=== PATIENT | male | born 1930 | race Two or more races ===

== ENCOUNTER → 2017-09-10 | Outpatient (REF) | payer OTHER | LOC: M SMT 12:58 | PROVIDERS: ATTEND Nurse Practitioner Family | DX: N41.1 Chronic prostatitis (principal) | CPT/HCPCS: 87086; G0463 ==

== ENCOUNTER 2017-10-29 06:12 | Day surgery (SDC) | payer OTHER ==
[2017-10-29] MEDS ORDERED: LevoFLOXacin IV 500 MG in APPROPRIATE DILUENT 1 EA IV (06:30)
[2017-10-29] MEDS ORDERED: LR 1,000 ML IV ×2 (06:30→10:15)
[2017-10-29] MEDS ORDERED: ROCURONIUM BROMIDE 50 MG/5 ML VIAL As Ordered (07:18)
[2017-10-29] MEDS ORDERED: PROPOFOL 200 MG/20 ML VIAL As Ordered (07:18)
[2017-10-29] MEDS ORDERED: fentaNYL 100 MCG/2 ML INJECTION (J3010) As Ordered (07:19)
[2017-10-29] MEDS ORDERED: dexameTHASONE 4 MG/ML 1ML VIAL (J1100) As Ordered ×2 (07:49)
[2017-10-29] MEDS ORDERED: ePHEDrine SULFATE 25 MG/5 ML(5MG/ML) SYRINGE As Ordered (07:55)
[2017-10-29] MEDS ORDERED: ONDANSETRON 4MG/2ML VIAL (J2405) IV (10:15)
[2017-10-29] MEDS ORDERED: fentaNYL 100 MCG/2 ML INJECTION (J3010) IV (10:15)
[2017-10-29] MEDS ORDERED: ACETAMINOPHEN TAB 650MG DOSE (2X325MG) PO (10:15)
[2017-10-29] MEDS ORDERED: PERCOCET 5MG/325MG TAB PO (10:15)
== END 2017-10-29 12:12 | disposition home or self-care (01) ==
LOC: M SDC 06:12
DX: N40.1 Benign prostatic hyperplasia with lower urinary tract symptoms (principal); N41.9 Inflammatory disease of prostate, unspecified; N13.8 Other obstructive and reflux uropathy; I35.1 Nonrheumatic aortic (valve) insufficiency; F41.9 Anxiety disorder, unspecified; F32.9 Major depressive disorder, single episode, unspecified; K21.9 Gastro-esophageal reflux disease without esophagitis; M19.90 Unspecified osteoarthritis, unspecified site; Z88.0 Allergy status to penicillin; Z88.1 Allergy status to other antibiotic agents; Z79.899 Other long term (current) drug therapy
CPT/HCPCS: 52601

== ENCOUNTER → 2018-04-05 | Outpatient (REF) | payer OTHER ==
[2018-04-05 14:00] LABS: APPEARANCE, URINE CLEAR (CLEAR); BACTERIA, URINE AUTO NEGATIVE (NEGATIVE); BILIRUBIN, URINE AUTO NEGATIVE (NEGATIVE); BLOOD, URINE BLOOD NEGATIVE (NEGATIVE); COLOR, URINE STRAW (YELLOW); GLUCOSE, URINE (UA) AUTO NEGATIVE (NEGATIVE); KETONE, URINE AUTO NEGATIVE (NEGATIVE); LEUKOCYTE ESTERASE, URINE AUTO NEGATIVE (NEGATIVE); MUCUS, URINE SMALL (NEGATIVE); NITRITE, URINE AUTO NEGATIVE (NEGATIVE); PROTEIN, URINE AUTO NEGATIVE (NEGATIVE); RBC, URINE AUTO 0 /HPF (0-3); SPECIFIC GRAVITY URINE AUTO 1.006 (1.002-1.035); SQUAMOUS EPITHELIAL CELL UR AU 0 /HPF (0-6); UROBILINOGEN, URINE AUTO 0.2 mg/dL (0.0-2.0); WBC, URINE AUTO 1 /HPF (0-3)
== END ==
LOC: M SMT 12:52
DX: R30.0 Dysuria (principal)
CPT/HCPCS: 81001

== ENCOUNTER → 2020-07-28 | Outpatient (REF) | payer MEDICARE ==
[~2020-07-28] MED LIST: BACT800T5 PO; FINA5TAB2 PO; PANT40TA29 PO; PRESCAP6 PO; STOO100T PO; VITA-108 PO; VITA100018 PO; VITA500T88 PO; [UNRECOGNIZED DRUG - CODE] PO
[2020-07-28 18:14] LABS: APPEARANCE, URINE CLEAR (CLEAR); BACTERIA, URINE AUTO NEGATIVE (NEGATIVE); BILIRUBIN, URINE AUTO NEGATIVE (NEGATIVE); BLOOD, URINE BLOOD NEGATIVE (NEGATIVE); COLOR, URINE YELLOW (YELLOW); GLUCOSE, URINE (UA) AUTO NEGATIVE (NEGATIVE); KETONE, URINE AUTO NEGATIVE (NEGATIVE); LEUKOCYTE ESTERASE, URINE AUTO NEGATIVE (NEGATIVE); NITRITE, URINE AUTO NEGATIVE (NEGATIVE); PROTEIN, URINE AUTO NEGATIVE (NEGATIVE); RBC, URINE AUTO 0 /HPF (0-3); SPECIFIC GRAVITY URINE AUTO 1.013 (1.002-1.035); SQUAMOUS EPITHELIAL CELL UR AU 0 /HPF (0-6); UROBILINOGEN, URINE AUTO 0.2 mg/dL (0.0-2.0); WBC, URINE AUTO 0 /HPF (0-3)
== END ==
LOC: M SMT 17:19
PROVIDERS: ATTEND Nurse Practitioner Family
DX: N40.1 Benign prostatic hyperplasia with lower urinary tract symptoms (principal)

== ENCOUNTER 2021-07-21 16:20 | Emergency (ER) | payer MEDICARE ==
[~2021-07-21] VITALS: Ht 177.8 cm; Wt 60.6 kg
[2021-07-21] MEDS ORDERED: NS 500 ML IV ONE (19:05)
[2021-07-21] MEDS ORDERED: MORPHINE 2 MG/ML 1ML VIAL (J2270) IV ONE (20:00)
[2021-07-21] MEDS ORDERED: ISOVUE-370 76% 100ML VIAL As Ordered ONE (20:02)
[2021-07-21 20:12] LABS: BASO # 0.1 10^3/uL (0.0-0.2); BASO % 0.6 % (0.0-1.0); EOS # 0.1 10^3/uL (0.0-0.5); EOS % 0.6 % (0.0-3.0); HEMATOCRIT 38.7 % (42.0-52.0); HEMOGLOBIN 13.4 g/dl (13.5-17.5); LYMPH % 19.7 % (24.0-44.0); MEAN CORPUSCULAR HEMOGLOBIN 29.6 pg (27.0-33.0); MEAN CORPUSCULAR HGB CONC 34.6 g/dl (32.0-36.5); MEAN CORPUSCULAR VOLUME 85.6 fl (80.0-96.0); MONO # 0.7 10^3/uL (0.0-0.8); MONO % 7.1 % (2.0-8.0); NEUTROPHILS # 7.2 10^3/uL (1.5-8.5); NEUTROPHILS % 71.8 % (36.0-66.0); PLATELET COUNT, AUTOMATED 238 10^3/uL (150-450); RED BLOOD COUNT 4.52 10^6/uL (4.30-6.10)
--- NOTE | 2021-07-21 21:32 | REPVR ---
PROCEDURE INFORMATION: Exam: CT Abdomen And Pelvis With Contrast Exam date and time: 07/21/2021 8:17 PM Age: 89 years old Clinical indication: Other: Rectal/pelvic pain TECHNIQUE: Imaging protocol: Computed tomography of the abdomen and pelvis with contrast. Radiation optimization: All CT scans at this facility use at least one of these dose optimization techniques: automated exposure control; mA and/or kV adjustment per patient size (includes targeted exams where dose is matched to clinical indication); or iterative reconstruction. Contrast material: ISOVUE 370; Contrast volume: 100 ml; Contrast route: INTRAVENOUS (IV); COMPARISON: No relevant prior studies available. FINDINGS: Lungs: Clear appearing lung bases. Heart: The heart is mildly enlarged and there is no pericardial effusion. Mediastinal space: There is a small sliding-type hiatal hernia. Liver: Normal. No mass. Gallbladder and bile ducts: Normal appearing gallbladder. Pancreas: Normal pancreas. Spleen: Normal spleen. Adrenal glands: Normal adrenal glands. Kidneys and ureters: There is enhancement of both kidneys. Stomach and bowel: There are surgical clips in the region of the sigmoid colon. The patient has previously had removal of a large portion of the sigmoid colon. There is no evidence of inflammation in the region of the cecum. Normal small bowel. Intraperitoneal space: There is no evidence of pneumoperitoneum. Knee there are surgical clips left upper quadrant. There is no evidence of free fluid in the abdomen or the pelvis. Vasculature: There is opacification of the SMV and the SMA. There is opacification of the aorta. Lymph nodes: There is no evidence of lymphadenopathy. Urinary bladder: Normal urinary bladder. Smooth urinary bladder moderately distended. Reproductive: There is a TURP defect. Bones/joints: There is no evidence of bony abnormality. There is enlargement of the central canal at the lower sacrum. Suggest correlation with an MRI scan with contrast to ensure that these are Tarlov cysts and not a solid mass if clinically indicated. Soft tissues: There is no evidence of soft tissue abnormality. Surgical clips are noted in this location. Other findings: There is no evidence of mass in the region of the pelvis. IMPRESSION: 1. The patient has had previous removal of a large portion of the sigmoid colon with surgical clips at the anastomosis. 2. Expansion of the sacral canal. 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 If there are old studies they can be obtained and compared it would be helpful. If no old studies number I scan could be considered. Electronically signed by: Semaj Frias On 07/21/2021 21:32:02 PM
[2021-07-21] MEDS ORDERED: ULTR50TA8 PO (23:48)
[2021-07-22 00:05] VITALS: BP 141/81
== END 2021-07-22 00:10 | disposition home or self-care (01) ==
LOC: M ED 16:20
DX: R10.2 Pelvic and perineal pain (principal); N40.0 Benign prostatic hyperplasia without lower urinary tract symptoms; N44.2 Benign cyst of testis; K21.9 Gastro-esophageal reflux disease without esophagitis; Z90.49 Acquired absence of other specified parts of digestive tract; Z79.899 Other long term (current) drug therapy; Z88.0 Allergy status to penicillin; Z88.1 Allergy status to other antibiotic agents
CPT/HCPCS: 74177; 80047; 81001; 85025; 96361; 96374; 99284; J2270; Q9967

== ENCOUNTER → 2022-02-02 | Outpatient (CLI) | payer MEDICARE ==
[~2022-02-02] MED LIST changes: +ALPR0.25 PO; +ASPI81TA26 PO; +BUSP1TAB PO; +COMPTAB7 PO; +LEXA5TAB13 PO; +META28.32 PO; +PRESCAP PO; +ULTR50TA8 PO; +VITA100093 PO; +[UNRECOGNIZED DRUG - CODE] PO
== END ==
LOC: M LABSMTC 11:42
PROVIDERS: ATTEND Anesthesiology
DX: Z01.812 Encounter for preprocedural laboratory examination (principal); Z20.822 Contact with and (suspected) exposure to COVID-19

== ENCOUNTER 2022-02-07 09:29 | Day surgery (SDC) | payer MEDICARE ==
[~2022-02-07] VITALS: Ht 175.3 cm; Wt 59.1 kg
[~2022-02-07 09:29] MED LIST changes: +NS 1,000 ML IV ONE
[2022-02-07] MEDS ORDERED: fentaNYL 100 MCG/2 ML INJECTION As Ordered ONE (10:12)
[2022-02-07] MEDS ORDERED: propofoL 500 MG/50 ML VIAL As Ordered ONE (10:12)
[2022-02-07] MEDS ORDERED: LIDOCAINE 2% 100MG/5ML SDV (FOR ANES.) As Ordered ONE (10:12)
[2022-02-07 12:20] VITALS: BP 125/69
== END 2022-02-07 12:49 | disposition home or self-care (01) ==
LOC: M OPP 09:29
PROVIDERS: ATTEND Internal Medicine Gastroenterology
DX: D12.4 Benign neoplasm of descending colon (principal); K64.8 Other hemorrhoids; K62.89 Other specified diseases of anus and rectum; Z98.0 Intestinal bypass and anastomosis status; K92.1 Melena; K44.9 Diaphragmatic hernia without obstruction or gangrene; K29.70 Gastritis, unspecified, without bleeding; R11.2 Nausea with vomiting, unspecified; Z79.82 Long term (current) use of aspirin; Z79.899 Other long term (current) drug therapy; Z88.0 Allergy status to penicillin; Z88.1 Allergy status to other antibiotic agents; Z85.858 Personal history of malignant neoplasm of other endocrine glands; Z90.49 Acquired absence of other specified parts of digestive tract; Z90.79 Acquired absence of other genital organ(s)
CPT/HCPCS: 43239; 45385; 88305; 88342; J3010